=== PATIENT | male | born 1995 | race Caucasian/White ===

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

== ENCOUNTER 2017-11-17 13:34 | Emergency (ER) | payer BC ==
[~2017-11-17 13:34] MED LIST: Lidocaine 1% 20 ML MDV ONE; Sodium Chloride Irrig Solution 250 ML BOT ONE
[2017-11-17] MEDS ORDERED: Triple Antibiotic Oint 1 GM Packet ONE (14:23)
== END 2017-11-17 14:45 | disposition home or self-care (01) ==
LOC: MADERS 13:34
DX: S61.412A Laceration without foreign body of left hand, initial encounter (principal); W27.0XXA Contact with workbench tool, initial encounter
CPT/HCPCS: 12001; J2001